=== PATIENT | female | born 1995 | race Caucasian/White ===

== ENCOUNTER 2020-08-23 05:24 | Emergency (ER) | payer OTHER ==
[~2020-08-23] VITALS: Ht 147.3 cm; Wt 54.4 kg
[2020-08-23 05:43] VITALS: BP 109/61
[2020-08-23] MEDS ORDERED: KETOROLAC 30 MG/ML VIAL IM ONE ×2 (05:45→07:30)
--- NOTE | 2020-08-23 05:47 | NUR ---
TO BED AMBULATORY
--- NOTE | 2020-08-23 05:54 | NUR ---
Dr. Saravia examining patient.
[2020-08-23 07:23] LABS: BASOPHILS # (AUTO) 0.1 K/uL (0.00-0.22); BASOPHILS % (AUTO) 0.7 % (0.0-2.0); EOSINOPHILS # (AUTO) 0.5 K/uL (0-0.4); EOSINOPHILS % (AUTO) 5.4 % (0.0-4.0); HEMOGLOBIN 11.9 g/dL (12.0-16.0); LYMPHOCYTES # (AUTO) 2.2 K/uL (2.5-16.5); LYMPHOCYTES % (AUTO) 21.9 % (20.5-51.1); MEAN CORPUSCULAR HEMOGLOBIN 31 pg (27-31); MEAN CORPUSCULAR HGB CONC 34 g/dL (33-37); MEAN CORPUSCULAR VOLUME 90.7 fL (80-94); MONOCYTES # (AUTO) 0.6 K/uL (0.8-1.0); MONOCYTES % (AUTO) 6.2 % (1.7-9.3); NEUTROPHILS # (AUTO) 6.6 K/uL (1.8-7.7); NEUTROPHILS % (AUTO) 65.8 % (42.2-75.2); PLATELET COUNT (AUTO) 351 K/uL (140-450); RED BLOOD CELL COUNT(AUTO) 3.86 MIL/uL (4.20-5.40); RED CELL DISTRIBUTION WIDTH 13.9 % (11.6-13.7)
--- NOTE | 2020-08-23 07:30 | NUR ---
C/O R FLANK PAIN 10/10 NON RADIATING AND SHARP. DENIES DYSURIA, N/V/FEVER.
[2020-08-23 07:48] LABS: ALBUMIN 3.6 g/dL (3.4-5.0); ANION GAP 10.2 (8-16); CARBON DIOXIDE 27.8 mmol/L (21-32); CREATININE 0.6 mg/dL (0.6-1.3); TOTAL BILIRUBIN 0.3 mg/dL (0.0-1.0)
[2020-08-23] MEDS ORDERED: HYDROcodone/APAP 5/325 MG 1 TAB TAB PO ONE (09:05)
[2020-08-23] MEDS ORDERED: cephALEXin 500 MG CAP PO ONE (09:30)
[2020-08-23] MEDS ORDERED: KETOROLAC 30 MG/ML VIAL ONE (09:48)
[2020-08-23 10:00] VITALS: BP 109/61
--- NOTE | 2020-08-23 10:27 | NUR ---
Patient discharged with v/s stable. Written and verbal after care instructions given and explained. Patient alert, oriented and verbalized understanding of instructions. Ambulatory with steady gait. All questions addressed prior to discharge. ID band removed. Patient advised to follow up with PMD. Rx of NORCO, MORTIN, AUGMENTIN, KEFLEX given. Patient educated on indication of medication including possible reaction and side effects. Opportunity to ask questions provided and answered.
[2020-08-23 12:42] LABS: APPEARANCE,URINE HAZY (CLEAR); BILIRUBIN,URINE NEGATIVE (NEGATIVE); COLOR,URINE YELLOW (YELLOW); LEUKOCYTE ESTERASE ,URINE NEGATIVE (NEGATIVE); NITRITE, URINE POSITIVE (NEGATIVE); UGLUCOSE NEGATIVE (NEGATIVE)
[2020-08-23 12:53] LABS: BLOOD, URINE TRACE (NEGATIVE); RBC,URINE 0-5 /HPF (0-5); WBC,URINE 0-5 /HPF (0-5)
== END 2020-08-23 10:27 | disposition home or self-care (01) ==
LOC: MED 05:24
DX: R10.9 Unspecified abdominal pain (principal); H91.90 Unspecified hearing loss, unspecified ear; Z87.442 Personal history of urinary calculi
CPT/HCPCS: 36415; 74176; 80053; 81001; 84702; 85025; 87086; 96372; 99284; J1885